=== PATIENT | female | born 1985 | race Caucasian/White ===

== ENCOUNTER → 2017-11-03 | Outpatient (CLI) | payer OTHER ==
--- NOTE | 2017-11-03 20:39 | Diagnostic Imaging Report ---
PROCEDURE:EXTREMITY ULTRASOUND COMPARISON:None. INDICATIONS:PALPABLE MASS OF LOWER BACK TECHNIQUE:Danielle scale and color Doppler evaluation analysis was performed in transverse and longitudinal planes of the lower back in area of referred abnormality. FINDINGS: Examination shows normal skin, subcutaneous tissue and underlying muscle, without focal masses, free fluid or fluid collections. CONCLUSION: 1. No focal lesions, free fluid or fluid collections are identified. Eduardo Batista M.D. Dictated by: Eduardo Batista M.D. on 11/03/2017 at 20:39 Electronically approved by: Eduardo Batista M.D. on 11/03/2017 at 20:39
== END ==
LOC: US 15:27
PROVIDERS: ATTEND Family Medicine
DX: R22.2 Localized swelling, mass and lump, trunk (principal)
CPT/HCPCS: 76882